=== PATIENT | female | born 1970 | race Caucasian/White ===

== ENCOUNTER 2019-01-17 17:33 | Emergency (ER) | payer BC ==
[2019-01-17 18:07] VITALS: BP 182/112
--- NOTE | 2019-01-17 18:24 | ED ---
Hypertension - HPI Summary HPI Summary: 48 yr old female with the complaint of dizziness earlier this afternoon, and elevated blood pressure for the past few weeks. She presently has no symptoms. She denies chest pain, sob, denies vertigo, headache, change in vision, speech, hearing, swallowing. She denies change in urination, swelling. - History of Current Complaint Chief Complaint: UCGeneralIllness Stated Complaint: ELEVATED BLOOD PRESSURE Time Seen by Provider: 01/17/19 18:09 Hx Last Menstrual Period: "a month ago" - Allergies/Home Medications Allergies/Adverse Reactions: Allergies Allergy/AdvReac Type Severity Reaction Status Date / Time No Known Allergies Allergy Verified 01/17/19 17:59 Home Medications: Home Medications NK [No Home Medications Reported] 01/17/19 [History Confirmed 01/17/19] PMH/Surg Hx/FS Hx/Imm Hx - Surgical History Surgery Procedure, Year, and Place: 2 C-SECTIONS Infectious Disease History: No Infectious Disease History: Denies: Traveled Outside the [place] in Last 30 Days - Family History Known Family History: Positive: None - Social History Occupation: Employed Full-time Alcohol Use: Daily Alcohol Amount: "glass of wine"/night Substance Use Type: Reports: None Smoking Status (MU): Current Some Day Smoker Type: eCigarettes Review of Systems Constitutional: Negative Negative: Chest Pain Negative: Shortness Of Breath Neurological: Other - dizziness Negative: Headache, Weakness, Paresthesia, Numbness, Syncope, Slurred Speech All Other Systems Reviewed And Are Negative: Yes Physical Exam Triage Information Reviewed: Yes Vital Signs On Initial Exam: Initial Vitals Temp Pulse Resp BP Pulse Ox 97.9 F 113 16 179/126 99 01/17/19 18:00 01/17/19 18:00 01/17/19 18:00 01/17/19 18:00 01/17/19 18:00 Vital Signs Reviewed: Yes Appearance: Positive: Well-Appearing, No Pain Distress Skin: Positive: Warm, Skin Color Reflects Adequate Perfusion Head/Face: Positive: Normal Head/Face Inspection Eyes: Positive: EOMI ENT: Positive: Normal ENT inspection Neck: Positive: Supple, Nontender Respiratory/Lung Sounds: Positive: Clear to Auscultation, Breath Sounds Present Cardiovascular: Positive: RRR. Negative: Murmur Abdomen Description: Negative: Distended Musculoskeletal: Positive: Strength/ROM Intact Neurological: Positive: Sensory/Motor Intact, Alert, Oriented to Person Place, Time, CN Intact II-III, Normal Gait, Speech Normal Psychiatric: Positive: Normal Diagnostics - Vital Signs Vital Signs Temp Pulse Resp BP Pulse Ox 01/17/19 18:06 182/112 01/17/19 18:00 97.9 F 113 16 179/126 99 - Laboratory Lab Statement: Any lab studies that have been ordered have been reviewed, and results considered in the medical decision making process. Hypertension Course/Dx - Course Course Of Treatment: 48 yr old with elevated bp, and dizziness earlier. She signed out ama refusing the ambulance. - Diagnoses Provider Diagnoses: Dizziness, Hypertension Discharge - Sign-Out/Discharge Documenting (check all that apply): Patient Departure All imaging exams completed and their final reports reviewed: No Studies - Discharge Plan Condition: Good Disposition: AGAINST MEDICAL ADVICE Patient Education Materials: Dizziness (ED), Hypertension (ED) Referrals: No Primary Care Phys,NOPCP [Primary Care Provider] - Additional Instructions: Heart rate 113; blood pressure 182/112 YOu need to go to the ER after leaving here, you have been offered an ambulance but have chosen to drive your self and declined the ambulance. - Billing Disposition and Condition Condition: GOOD Disposition: Against Medical Advice
== END 2019-01-17 18:25 | disposition left against medical advice (07) ==
LOC: UCCORT 17:33
DX: I10 Essential (primary) hypertension (principal); R42 Dizziness and giddiness; F17.210 Nicotine dependence, cigarettes, uncomplicated
CPT/HCPCS: 99202; G0463